=== PATIENT | male | born 1970 | race Caucasian/White ===

== ENCOUNTER → 2017-01-28 | Outpatient (CLI) | payer BC ==
--- NOTE | ~2017-01-28 | CT4 ---
[facility] A Service of [facility] RADIOLOGY TEXT RESULTS PATIENT: ABIODUN KRUEGER LOCATION: [facility] : 66 UNIT #: [id number] AGE: [address]: David Gonzalez MD SEX: M ORDER DR: [id number] [address] [address] [id number] O MR#: [id number] Acc #: [id number] NAME: ABIODUN KRUEGER. : 1970 SEX: M STUDY DATE/TIME: 01/28/2017 9:11 UNIT: [facility] ROOM: STUDY DESCRIPTION: CT Abd and Pelv Wo Cont Attending Physician: David Gonzalez M.D. Referring Physician: David Gonzalez M.D. Ordering Physician: David Gonzalez M.D. Primary Care Physician: Ramón Ramirez Jr., M.D. MEDICAL IMAGING REPORT This report is preliminary unless electronic signature is present. EXAM CT of the abdomen and pelvis without contrast. INDICATIONS Kidney stones. These have been present since October of 2016 that has been present since October of 2016. Patient reports right flank pain on and off. He said he passed a stone on Tuesday of this week. TECHNIQUE Axial CT images were obtained from the dome of the diaphragm through the symphysis pubis. No oral or intravenous contrast material was administered. This CT exam was performed with one or more of the following radiation dose reduction techniques: automatic exposure control, adjustment of mA and/or kV according to patient size, and iterative reconstruction. FINDINGS Images through the lung bases demonstrate some left basilar atelectasis. This patient does have bilateral nonobstructing renal stones. Patient has some very mild right-sided hydroureteronephrosis and there is some mild periureteral stranding identified on the right. Obvious obstructing stone is not seen and this may reflect passage of the described stone on Tuesday of this week. The largest stone on the right measures about 3 mm, while the largest stone on the left measures about 4 mm. Again, I do not see any distal ureteral stones and I do not see any bladder stones. The patient has low-attenuation lesions seen within both kidneys, which are favored to represent renal cysts. The spleen, stomach and proximal small bowel are within normal limits, as are the adrenal glands and pancreas. Liver and gallbladder appear unremarkable. No free fluid or adenopathy is seen within the abdomen. There is some minimal atherosclerotic involvement of the abdominal aorta. There is a small fat-containing umbilical hernia. Patient does have colonic diverticulosis, although, I [facility] A Service of [facility] RADIOLOGY TEXT RESULTS PATIENT: ABIODUN KRUEGER LOCATION: [facility] : 66 UNIT #: [id number] AGE: [address]: David Gonzalez MD SEX: M ORDER DR: do not see any evidence of diverticulitis. Appendix is not seen, but I do not see a dilated tubular structure or soft tissue stranding within the right lower quadrant to suggest acute appendicitis. No free fluid or adenopathy is seen within the pelvis. Review of bony windows, does not demonstrate any aggressive osseous abnormalities. IMPRESSION 1. Very mild right-sided hydroureteronephrosis, although, a definite obstructing stone is not seen. Patient does report passage of a renal stones on Tuesday of this week, and this potentially may account for the appearance of the right kidney and ureter. There is some mild right-sided periureteral stranding. Correlation with urinalysis and urine cultures is suggested. 2. Multiple nonobstructing stones identified within both kidneys. No bladder stones are seen. 3. Colonic diverticulosis without any evidence of diverticulitis. 4. Suspected bilateral renal cysts. Dictated by... Kacie Sullivan M.D. THIS IS AN ELECTRONICALLY VERIFIED REPORT Kacie Sullivan M.D. at 01/30/2017 1:09 PM JENIFER/anabelle TD: 01/29/2017 13:15 JOB #: [id number] MEDICAL IMAGING REPORT Page 1 of 1
== END | disposition home or self-care (01) ==
LOC: SCT 08:30
DX: N39.0 Urinary tract infection, site not specified (principal); M54.5 Low back pain; N13.2 Hydronephrosis with renal and ureteral calculous obstruction; K57.30 Diverticulosis of large intestine without perforation or abscess without bleeding; Z87.442 Personal history of urinary calculi
CPT/HCPCS: 74176